=== PATIENT | female | born 1990 ===

== ENCOUNTER 2025-02-06 04:04 | Outpatient (CLI) | payer OTHER, SELFPAY ==
[2025-02-06 10:57] LABS: Abs Immature Grans 0.03 10^3/uL (0.0-0.06); HCT 42.7 % (36.0-46.0); HGB 14.2 g/dL (11.2-15.7); Immature Grans % 0.3 %; MCH 28.6 pg (27.0-33.0); MCHC 33.3 % (32.0-36.0); MCV 86 fL (80-95); MPV 10.4 fL (8.0-11.0); Platelet Count 254 10^3/uL (130-400); RBC 4.97 10^6/uL (3.93-5.22); RDW 14.0 % (11.7-14.6); RDW-SD 43.7 fL; WBC 10.07 10^3/uL (4.4-10.8)
[2025-02-06 11:20] LABS: Hemoglobin A1C 5.5 % (<5.7)
[2025-02-06 19:03] LABS: Hepatitis C Ab w Rflx HCV PCR Negative (Negative)
[2025-02-06 19:10] LABS: HIV-1/2 Ag & Ab Screen Negative (Negative)
[2025-02-07 09:23] LABS: Rubella IgG Ab (UVM) Positive (See Note)
[2025-02-08 14:56] LABS: Lab Add On Test DONE
[2025-02-08 15:20] LABS: TSH (W/Ref FT4) 0.77 uIU/mL (0.36-3.74)
[2025-02-08 21:36] LABS: Syphilis IgG w/Reflex Nonreactive (Nonreactive)
== END 2025-02-06 04:05 | disposition home or self-care (01) ==
LOC: LBO 04:04
PROVIDERS: Obstetrics & Gynecology; Visit Provider Advanced Practice Midwife
DX: Z34.91 Encounter for supervision of normal pregnancy, unspecified, first trimester
CPT/HCPCS: 36415; 86787; 86803; 86850; 86900; 86901; 87340; 87389; 83036; 84443; 85025; 86762; 86780

== ENCOUNTER 2025-02-06 10:05 | Outpatient (REF) | payer OTHER, SELFPAY ==
[2025-02-07 12:04] LABS: Chlamydia Result Negative (Negative); GC Result Negative (Negative)
== END 2025-02-06 10:06 | disposition home or self-care (01) ==
LOC: LBN 10:05
PROVIDERS: Visit Provider Obstetrics & Gynecology
DX: Z34.91 Encounter for supervision of normal pregnancy, unspecified, first trimester
CPT/HCPCS: 87077; 87491; 87591; 87086

== ENCOUNTER 2025-05-01 11:10 | Outpatient (REF) | payer OTHER, SELFPAY ==
[2025-05-01 11:50] LABS: Glucose Negative (Negative)
[2025-05-01 12:43] LABS: Creatinine,Urine 20.43 mg/dL
== END 2025-05-01 11:11 | disposition home or self-care (01) ==
LOC: LBN 11:10
PROVIDERS: Visit Provider Advanced Practice Midwife
DX: Z34.92 Encounter for supervision of normal pregnancy, unspecified, second trimester (principal); M06.9 Rheumatoid arthritis, unspecified
CPT/HCPCS: 81003; 82565

== ENCOUNTER 2025-05-28 03:22 | Outpatient (CLI) | payer OTHER, SELFPAY ==
[2025-05-28 11:01] LABS: HCT 38.8 % (36.0-46.0); HGB 12.9 g/dL (11.2-15.7); MCH 29.8 pg (27.0-33.0); MCHC 33.2 % (32.0-36.0); MCV 90 fL (80-95); MPV 10.3 fL (8.0-11.0); Platelet Count 203 10^3/uL (130-400); RBC 4.33 10^6/uL (3.93-5.22); RDW 14.0 % (11.7-14.6); RDW-SD 46.1 fL; WBC 11.28 10^3/uL (4.4-10.8)
[2025-05-28 11:42] LABS: Glucose,1 Hr (Glucola) 98 mg/dL (80-140)
[2025-05-28 11:45] LABS: ALT 17 U/L (10-49); AST 22 U/L (<34); Albumin 3.7 g/dL (3.4-5.0); Alkaline Phosphatase 51 U/L (46-116); Anion Gap 7.6 mmol/L (3-11); BUN 8 mg/dL (9-23); Bilirubin, Total 0.60 mg/dL (0.2-1.2); CO2 25.4 mmol/L (20.0-31.0); Calcium 8.8 mg/dL (8.3-10.6); Chloride 107 mmol/L (98-107); Glucose 97 mg/dL (74-106); Potassium 4.0 mmol/L (3.5-5.1); Sodium 140 mmol/L (136-145); Total Protein 6.2 g/dL (5.7-8.2)
== END 2025-05-28 03:23 | disposition home or self-care (01) ==
LOC: LBO 03:23
PROVIDERS: Visit Provider Advanced Practice Midwife
DX: Z34.92 Encounter for supervision of normal pregnancy, unspecified, second trimester (principal); Z87.59 Personal history of other complications of pregnancy, childbirth and the puerperium
CPT/HCPCS: 36415; 80053; 82950; 85027